=== PATIENT | female | born 1970 | race Caucasian/White ===

== ENCOUNTER 2019-08-07 09:25 | Emergency (ER) | payer OTHER ==
--- NOTE | 2019-08-07 09:58 | RAD ---
XR Knee Rt 4 View STANDARD History: Trauma. Comparison: None. Findings: No significant joint effusion. No acute fracture or malalignment. Mild flattening of the la teral compartment articular surfaces with small osteophyte formation. Impression: Mild degenerative disease without acute osseous abnormality.
--- NOTE | 2019-08-07 10:00 | RAD ---
XR Shoulder Lt 3 View STANDARD History: Trauma Comparison: None. Findings: There is abnormal finding of the glenoid with osteophyte formation. Age-indeterminate injur y of the anterior-inferior glenoid. Mild narrowing of the acromioclavicular joint. Ribs are intact. Impression: Dysplastic appearing glenoid with anterior inferior old fracture versus labral calcificat ion. Nonemergent MRI recommended.
--- NOTE | 2019-08-07 10:01 | RAD ---
XR Knee Lt 4 View STANDARD History: Trauma Comparison: None. Findings: Mild medial margin joint space narrowing. Small medial and lateral compartment osteophytes. No acute fracture or malalignment. No joint effusion. Impression: [id number] degenerative changes. No acute osseous abnormality.
--- NOTE | 2019-08-07 10:02 | RAD ---
XR Tib Fib Lt Leg 2 View History: Trauma Comparison: None. Findings: Tibia and fibula are intact. No fracture. Impression: No acute osseous abnormality.
== END 2019-08-07 10:24 | disposition home or self-care (01) ==
LOC: ERS 09:25
DX: S40.012A Contusion of left shoulder, initial encounter (principal); S80.01XA Contusion of right knee, initial encounter; V89.2XXA Person injured in unspecified motor-vehicle accident, traffic, initial encounter; Z79.899 Other long term (current) drug therapy

== ENCOUNTER 2021-10-28 07:59 | Outpatient (CLI) | payer BC | END 2021-10-28 08:00 | disposition home or self-care (01) | LOC: SCSMRI 07:59 | PROVIDERS: ATTEND Physician Assistant | DX: M24.812 Other specific joint derangements of left shoulder, not elsewhere classified (principal); R93.6 Abnormal findings on diagnostic imaging of limbs; S43.432A Superior glenoid labrum lesion of left shoulder, initial encounter ==